=== PATIENT | female | born 1965 ===

== ENCOUNTER 2017-10-12 08:05 | Emergency (ER) | payer BC ==
[2017-10-12 08:05] VITALS: BMI 41.5
[2017-10-12 08:26] VITALS: TEMP 97.9
[2017-10-12] MEDS ORDERED: DiphenhydrAMINE 50 mg/ml Inj IVP STA ×2 (09:10→12:14)
[2017-10-12] MEDS ORDERED: Sodium Chloride 0.9% 1,000 ML IV STA (09:10)
--- NOTE | 2017-10-12 09:11 | ED PDOC ---
Arrival/HPI - General Chief Complaint: Abnormal Skin Integrity Time Seen by Provider: 10/12/17 08:42 Historian: Patient - History of Present Illness Narrative History of Present Illness (Text): 10/12/17 09:00 Yana Becerra is a 52 year old female, whose past medical history includes diabetes , who presents to the emergency department complaining of an allergic reaction since one day ago. Patient reports taking Mucinex and developing a rash s/p PO intake. She notes taking Benadryl at 6 PM and there was temporary improvement until this morning when she woke up with hives all over. Patient denies shortness of breath, but has difficulty swallowing. Patient denies fever, vomiting, chest pain, or other complaints. Time/Duration: 24 hours Symptom Onset: Sudden Symptom Course: Unchanged Context: Home Past Medical History - Provider Review Nursing Documentation Reviewed: Yes - Infectious Disease Hx of Infectious Diseases: None - Cardiac Hx Cardiac Disorders: Yes - Pulmonary Hx Respiratory Disorders: No - Neurological Hx Neurological Disorder: No - HEENT Hx HEENT Disorder: No - Renal Hx Renal Disorder: No - Endocrine/Metabolic Hx Endocrine Disorders: Yes Hx Diabetes Mellitus Type 2: Yes - Hematological/Oncological Hx Blood Disorders: No - Integumentary Hx Dermatological Disorder: No - Musculoskeletal/Rheumatological Hx Musculoskeletal Disorders: No - Gastrointestinal Hx Gastrointestinal Disorders: No - Genitourinary/Gynecological Hx Genitourinary Disorders: No - Psychiatric Hx Emotional Abuse: No Hx Physical Abuse: No Hx Substance Use: No - Surgical History Hx Section: Yes (X3) Hx Cholecystectomy: Yes Other/Comment: LIPOMA ON THE BACK - Anesthesia Hx Anesthesia: Yes Hx Anesthesia Reactions: No Hx Malignant Hyperthermia: No - Suicidal Assessment Feels Threatened In Home Enviroment: No Family/Social History - Physician Review Nursing Documentation Reviewed: Yes Family/Social History: Unknown Family HX Smoking Status: Former Smoker Hx Alcohol Use: No Hx Substance Use: No Allergies/Home Meds Allergies/Adverse Reactions: Allergies No Known Allergies Allergy (Verified 10/12/17 08:26) Home Medications: Home Meds Medication Instructions Recorded Confirmed Alogliptin Reid/Pioglitazone 25 mg PO DAILY 10/12/17 10/12/17 [Oseni 25-30 mg Tablet] Glimepiride [amaRYL] 4 mg PO BID 10/12/17 10/12/17 Repaglinide [Prandin] 2 mg PO TID 10/12/17 10/12/17 Rosuvastatin Calcium [Crestor] 5 mg PO DAILY 10/12/17 10/12/17 Sitagliptin Phos/Metformin HCl 1 each PO BID 10/12/17 10/12/17 [Janumet 50-1,000 mg Tablet] Review of Systems - Physician Review All systems were reviewed & negative as marked: Yes - Review of Systems Constitutional: absent: Fevers Respiratory: Other (difficulty swallowing). absent: SOB Cardiovascular: absent: Chest Pain Skin: Rash (rash on extremitites and trunk) Physical Exam Vital Signs Reviewed: Yes Vital Signs Temp Pulse Resp BP Pulse Ox 10/12/17 12:02 82 16 134/73 99 10/12/17 10:51 72 16 130/72 99 10/12/17 08:23 97.9 F 91 H 18 136/69 97 Temperature: Afebrile Blood Pressure: Normal Pulse: Tachycardic Respiratory Rate: Normal Appearance: Positive for: Well-Appearing, Non-Toxic, Comfortable Pain Distress: None Mental Status: Positive for: Alert and Oriented X 3 - Systems Exam Head: Present: Atraumatic, Normocephalic Pupils: Present: PERRL Extroacular Muscles: Present: EOMI Conjunctiva: Present: Normal Mouth: Present: Moist Mucous Membranes Respiratory/Chest: Present: Clear to Auscultation, Good Air Exchange. No: Respiratory Distress, Accessory Muscle Use, Wheezes, Rales, Retracting, Rhonchi Cardiovascular: Present: Regular Rate and Rhythm, Normal S1, S2. No: Murmurs Abdomen: Present: Normal Bowel Sounds. No: Tenderness, Distention, Peritoneal Signs, Rebound, Guarding Neurological: Present: GCS=15, CN II-XII Intact, Speech Normal Skin: Present: Warm, Dry, Rashes (hives on trunk and extremities), Normal Color Psychiatric: Present: Alert, Oriented x 3, Normal Insight, Normal Concentration Medical Decision Making ED Course and Treatment: 10/12/17 Impression: 52 year old female with hives on trunk and extremities complaining of allergic reaction. Plan: -- Solumedrol, Pepcid, and Benadryl -- Reassess and disposition Progress Notes: - Medication Orders Current Medication Orders: Methylprednisolone (Solu-Medrol) 125 mg IVP STAT STA Stop: 10/12/17 12:15 Discontinued Medications Diphenhydramine HCl (Benadryl) 50 mg IVP STAT STA Stop: 10/12/17 09:11 Last Admin: 10/12/17 09:51 Dose: 50 mg IVP Administration Document 10/12/17 09:51 MS (Rec: 10/12/17 09:52 MS [id number]) Charges for Administration # of IVP Administrations 1 Diphenhydramine HCl (Benadryl) 50 mg IVP STAT STA Stop: 10/12/17 12:15 Famotidine (Pepcid) 40 mg IVP STAT STA Stop: 10/12/17 09:11 Last Admin: 10/12/17 09:50 Dose: 40 mg IVP Administration Document 10/12/17 09:50 MS (Rec: 10/12/17 09:50 MS [id number]) Charges for Administration # of IVP Administrations 1 Famotidine (Pepcid) 40 mg IVP STAT STA Stop: 10/12/17 12:15 Sodium Chloride (Sodium Chloride 0.9%) 1,000 mls @ 999 mls/hr IV .Q1H1M STA Stop: 10/12/17 10:10 Last Admin: 10/12/17 09:53 Dose: 999 mls/hr eMAR Start Stop Document 10/12/17 09:53 MS (Rec: 10/12/17 09:53 MS [id number]) Intravenous Solution Start Date 10/12/17 Start Time 09:53 End Date 10/12/17 End time 10:53 Total Infusion Time 60 Methylprednisolone (Solu-Medrol) 125 mg IVP STAT STA Stop: 10/12/17 09:11 Last Admin: 10/12/17 09:53 Dose: 125 mg IVP Administration Document 10/12/17 09:53 MS (Rec: 10/12/17 09:53 MS [id number]) Charges for Administration # of IVP Administrations 1 - PA / LAUNDROMAT MANAGER / Resident Statement MD/DO has reviewed & agrees with the documentation as recorded. - Scribe Statement The provider has reviewed the documentation as recorded by the Shyanne Bustillos Provider Scribe Attestation: All medical record entries made by the Scribe were at my direction and personally dictated by me. I have reviewed the chart and agree that the record accurately reflects my personal performance of the history, physical exam, medical decision making, and the department course for this patient. I have also personally directed, reviewed, and agree with the discharge instructions and disposition. Disposition/Present on Arrival - Present on Arrival Any Indicators Present on Arrival: No History of DVT/PE: No History of Uncontrolled Diabetes: No Urinary Catheter: No History of Decub. Ulcer: No History Surgical Site Infection Following: None - Disposition Have Diagnosis and Disposition been Completed?: Yes Diagnosis: Allergic reaction Disposition: HOME/ ROUTINE Disposition Time: 12:17 Patient Plan: Discharge Condition: GOOD Additional Instructions: Mrs Becerra- It is impossible to say what you are reacting to. Please follow up with your doctor for a referral to an superintendent ge[facility] laboratory. Use the pepcid, benadryl and medrol as prescribed, bland diet, dreft laundry detergent, no fabric softeners, dove soap and daniela's baby shampoo only. Return to us if any problems. Mathew- Dr.Frank Man Referrals: [email or web address], [Non-Staff] - Follow up with primary Forms: [employer] (L[place]uanian)
[2017-10-12 10:52] VITALS: RESP 16
[2017-10-12 12:43] VITALS: BP 131/55; PULSE 77; O2SAT 98
== END 2017-10-12 13:04 | disposition home or self-care (01) ==
LOC: ED 08:05
DX: T78.49XA Other allergy, initial encounter (principal); X58.XXXA Exposure to other specified factors, initial encounter
CPT/HCPCS: 96361; 96374; 96375; 96376; 99284; J1200; J2930; J7040